=== PATIENT | female | born 1965 | race Caucasian/White ===

== ENCOUNTER 2021-10-16 08:03 | Emergency (ER) | payer MEDICARE, OTHER ==
[2021-10-16 08:46] LABS: HEMOGLOBIN 14.5 gm/dl (12.3-15.3); RED BLOOD COUNT 4.73 M/UL (4.00-5.10); WHITE BLOOD COUNT 9.7 K/UL (4.5-11.0)
[2021-10-16 09:09] LABS: BUN/CREATININE RATIO 19 (0-10)
[2021-10-16] MEDS ORDERED: ASPIRIN 325MG325 MG PO (12:30)
== END 2021-10-16 12:38 | disposition left against medical advice (07) ==
LOC: ER1 08:03
PROVIDERS: Emergency Medicine
DX: I63.9 Cerebral infarction, unspecified (principal); G45.9 Transient cerebral ischemic attack, unspecified; R47.81 Slurred speech; R29.701 NIHSS score 1; E07.9 Disorder of thyroid, unspecified; E78.5 Hyperlipidemia, unspecified; I10 Essential (primary) hypertension; J44.9 Chronic obstructive pulmonary disease, unspecified; Z20.822 Contact with and (suspected) exposure to COVID-19
CPT/HCPCS: 70450; 70496; 70498; 71045; 80053; 81001; 82550; 82553; 82962; 83605; 84484; 85025; 85610; 85730; 87040; 93005; 99283; Q9967; U0002